=== PATIENT | female | born 1945 | race Caucasian/White ===

== ENCOUNTER 2018-04-10 13:00 | Emergency (ER) | payer OTHER ==
[~2018-04-10] VITALS: Ht 154.9 cm; Wt 61.2 kg
[2018-04-10] MEDS ORDERED: TRAMADOL HCL50 MG (13:32)
[2018-04-10] MEDS ORDERED: TOPROL XL25 M1 (13:33)
[2018-04-10] MEDS ORDERED: LIPITOR20 MG (13:33)
[2018-04-10] MEDS ORDERED: PRILOSEC10 M2 (13:33)
== END 2018-04-10 15:53 | disposition home or self-care (01) ==
LOC: ER 13:00
DX: S92.515A Nondisplaced fracture of proximal phalanx of left lesser toe(s), initial encounter for closed fracture (principal); M79.675 Pain in left toe(s); S90.122S Contusion of left lesser toe(s) without damage to nail, sequela; W22.8XXS Striking against or struck by other objects, sequela

== ENCOUNTER 2018-09-18 09:12 | Outpatient (CLI) | payer OTHER ==
[~2018-09-18 09:12] MED LIST: LIPITOR20 MG; PRILOSEC10 M2; TOPROL XL25 M1; TRAMADOL HCL50 MG
== END 2018-09-18 09:19 | disposition home or self-care (01) ==
LOC: SONOGRAMA 09:12
DX: E04.2 Nontoxic multinodular goiter (principal)

== ENCOUNTER 2018-11-24 09:45 | Emergency (ER) | payer OTHER ==
[~2018-11-24] VITALS: Ht 157.5 cm; Wt 61.7 kg
[2018-11-24] MEDS ORDERED: IRBESARTAN75 MG (09:51)
== END 2018-11-24 16:30 | disposition home or self-care (01) ==
LOC: ER 09:45
DX: M79.621 Pain in right upper arm (principal); M25.511 Pain in right shoulder; R68.84 Jaw pain; M79.642 Pain in left hand; R51 Headache

== ENCOUNTER 2019-02-25 09:16 | Emergency (ER) | payer OTHER ==
[~2019-02-25] VITALS: Ht 157.5 cm; Wt 61.2 kg
[~2019-02-25 09:16] MED LIST changes: +IRBESARTAN75 MG
[2019-02-25] MEDS ORDERED: ATACAND4 MG (09:31)
[2019-02-25] MEDS ORDERED: VALTREX1000 MG (09:31)
== END 2019-02-25 13:18 | disposition home or self-care (01) ==
LOC: ER 09:16
DX: J98.8 Other specified respiratory disorders (principal)